=== PATIENT | male | born 1990 | race Two or more races ===

== ENCOUNTER 2023-05-18 00:19 | Emergency (ER) | payer SELFPAY ==
[~2023-05-18] VITALS: Ht 182.9 cm; Wt 117.9 kg
[2023-05-18 02:48] VITALS: BP 159/108; TEMP 98.9; O2SAT 98
== END 2023-05-18 02:54 | disposition home or self-care (01) ==
LOC: ER 00:24
DX: F10.129 Alcohol abuse with intoxication, unspecified (principal); E11.9 Type 2 diabetes mellitus without complications; Y90.9 Presence of alcohol in blood, level not specified
CPT/HCPCS: 82962-TC

== ENCOUNTER 2025-04-13 10:52 | Inpatient (IN) | payer OTHER ==
[2025-04-13] VITALS: BP 117/70; TEMP 97.7; O2SAT 95
[~2025-04-13] VITALS: Ht 182.9 cm; Wt 143.3 kg
[~2025-04-13 10:52] MED LIST: CETI-90 PO; PRED50TA PO
[2025-04-13] MEDS ORDERED: NITROGLYCERIN PACKET 1 GM PACKET ONE (11:21)
[2025-04-13] MEDS ORDERED: FUROSEMIDE 40 MG/4 ML VIAL ONE (11:21)
[2025-04-13] MEDS: FUROSEMIDE 40 MG/4 ML VIAL IV ONE (11:24)
[2025-04-13] MEDS: NITROGLYCERIN PACKET 1 GM PACKET TD ONE (11:28)
[2025-04-13 11:34] LABS: PLATELET COUNT (AUTO) 258 K/uL (150-450); RED BLOOD CELL COUNT(AUTO) 5.18 MIL/uL (4.5-6.0); RED CELL DISTRIBUTION WIDTH 15.0 % (11.5-15.0); WHITE BLOOD COUNT (AUTO) 8.1 K/uL (4.3-11.0)
[2025-04-13] MEDS ORDERED: SPIR25TA PO (11:37)
[2025-04-13] MEDS ORDERED: EMPA10TA PO (11:37)
[2025-04-13] MEDS ORDERED: FURO80TA3 PO (11:37)
[2025-04-13] MEDS ORDERED: METOPROLOL PO (11:37)
[2025-04-13] MEDS ORDERED: SACU1TAB4 PO (11:37)
[2025-04-13 11:42] LABS: CALCIUM, SERUM 7.4 mg/dL (8.5-10.1); CREATININE 0.9 mg/dL (0.6-1.3); SODIUM SERUM 138 mmol/L (136-145); UREA NITROGEN, BLOOD 13 mg/dL (7-18)
[2025-04-13 11:55] LABS: NT-PRO BNP 908 pg/mL (0-125)
[2025-04-13] MEDS ORDERED: MAG HYDROX/AL HYDROX/SIMETH 30 ML UDC PO PRN (13:30)
[2025-04-13] MEDS ORDERED: ACETAMINOPHEN 325 MG TABLET PO PRN (13:30)
[2025-04-13] MEDS ORDERED: MAGNESIUM HYDROXIDE 30 ML UDC PO PRN (13:30)
[2025-04-13] MEDS ORDERED: ONDANSETRON HCL/PF 4 MG/2 ML VIAL IVP PRN (13:30)
[2025-04-13] MEDS ORDERED: Z GUARD REMEDY 4 OZ OINT TP PRN (13:30)
[2025-04-13 13:33] VITALS: BP_SYST 102; BP_SYST 105; BP_DIAS 53; BP_DIAS 54; TEMP 97.7; O2SAT 98
[2025-04-13] MEDS ORDERED: DEXTROSE 50%-WATER 50 ML DISP.SYRIN IV PRN (14:00)
[2025-04-13 16:00] VITALS: BP 109/67; TEMP 98.1; O2SAT 91
[2025-04-13] MEDS: FUROSEMIDE 40 MG/4 ML VIAL IV SCH (17:32)
[2025-04-13] MEDS: BLOOD SUGAR DIAGNOSTIC 1 EACH STRIP VI SCH (18:50)
[2025-04-13 20:00] VITALS: BP 109/79; TEMP 98.2; O2SAT 94
[2025-04-14] VITALS: BP 117/70; TEMP 98.2; O2SAT 95
[2025-04-14 04:00] VITALS: BP 145/75; TEMP 98.4; O2SAT 96
[2025-04-14 07:04] LABS: PLATELET COUNT (AUTO) 207 K/uL (150-450); RED BLOOD CELL COUNT(AUTO) 5.37 MIL/uL (4.5-6.0); RED CELL DISTRIBUTION WIDTH 15.4 % (11.5-15.0); WHITE BLOOD COUNT (AUTO) 9.0 K/uL (4.3-11.0)
[2025-04-14 07:39] LABS: CALCIUM, SERUM 8.2 mg/dL (8.5-10.1); CREATININE 0.8 mg/dL (0.6-1.3); PHOSPHORUS 3.2 mg/dL (2.5-4.9); SODIUM SERUM 140.0 mmol/L (136-145); UREA NITROGEN, BLOOD 11.0 mg/dL (7-18)
[2025-04-14 08:00] VITALS: BP 137/99; TEMP 98.4; O2SAT 97
[2025-04-14] MEDS: SPIRONOLACTONE 25 MG TABLET PO SCH (08:50)
[2025-04-14] MEDS: cetrizine 10 MG TABLET PO SCH (08:51)
[2025-04-14 12:00] VITALS: BP 107/66; TEMP 98.1; O2SAT 95
[2025-04-14] MEDS: INSULIN REGULAR, HUMAN 100 UNIT/ML 3 ML VIAL SQ PRN (12:10)
[2025-04-14 16:00] VITALS: BP 122/79; TEMP 97.5; O2SAT 95
[2025-04-14 20:00] VITALS: BP 123/83; TEMP 98; O2SAT 97
[2025-04-14] MEDS: *INSULIN REGULAR(HUMULIN R)HUM 100 UNIT/ML VIAL SQ PRN (21:37)
[2025-04-15] VITALS: BP 98/72; TEMP 98.3; O2SAT 98
[2025-04-15 04:00] VITALS: BP 116/75; TEMP 98.7; O2SAT 97
[2025-04-15 08:00] VITALS: BP 111/90; TEMP 98.4; O2SAT 98
[2025-04-15 09:02] VITALS: BP 111/50
[2025-04-15 10:16] LABS: AMPHETAMINE, URINE NEGATIVE (NEGATIVE); BARBITURATE, URINE NEGATIVE (NEGATIVE); BENZODIAZEPINE, URINE NEGATIVE (NEGATIVE); COCCAINE, URINE NEGATIVE (NEGATIVE); OPIATE, URINE NEGATIVE (NEGATIVE)
[2025-04-15 10:17] LABS: CANNABINOID, URINE POSITIVE (NEGATIVE)
== END 2025-04-15 11:30 | disposition left against medical advice (07) | DRG 291 ==
LOC: ER 10:55 → TELE1 12:52 → MEDSG1 04-15 10:55
PROVIDERS: ADMIT Internal Medicine; ATTEND Internal Medicine
DX: I11.0 Hypertensive heart disease with heart failure (principal); I50.23 Acute on chronic systolic (congestive) heart failure; Z68.41 Body mass index [BMI] 40.0-44.9, adult; I42.7 Cardiomyopathy due to drug and external agent; T50.905A Adverse effect of unspecified drugs, medicaments and biological substances, initial encounter; Y92.9 Unspecified place or not applicable; E66.01 Morbid (severe) obesity due to excess calories; Z79.84 Long term (current) use of oral hypoglycemic drugs; Z91.148 Patient's other noncompliance with medication regimen for other reason; Z79.899 Other long term (current) drug therapy
CPT/HCPCS: 36415; 71045-TC; 80048-TC; 82962-TC; 83735-TC; 83880; 84100-TC; 84484-TC; 85025-TC; 87081-TC; 93307-TC; G0378; J1815; J1938